=== PATIENT | male | born 1950 | race Caucasian/White ===

== ENCOUNTER 2017-09-16 18:26 | Emergency (ER) | payer SELFPAY ==
[~2017-09-16] VITALS: Ht 170.2 cm; Wt 82.0 kg
[2017-09-16 18:29] VITALS: BP 169/73; PULSE 73; RESP 20; TEMP 98.4; O2SAT 100
[2017-09-16] MEDS ORDERED: [UNRECOGNIZED DRUG - REMARK] (18:40)
[2017-09-16] MEDS ORDERED: GLIP5TAB8 PO (18:40)
[2017-09-16] MEDS ORDERED: VALS1TAB63 PO (18:40)
[2017-09-16] MEDS ORDERED: METF1000 PO (18:40)
[2017-09-16] MEDS ORDERED: CARV3.12 PO (18:40)
--- NOTE | 2017-09-17 23:07 | EKG ---
Date Performed: 09/16/2017 Time Performed: 18:42:23 PTAGE: 66 years EKG: Sinus rhythm SEPTAL MYOCARDIAL INFARCTION ABNORMAL ECG INTERPRETATION BASED ON A DEFAULT AGE OF 42 YEARS NO PREVIOUS TRACING DOCTOR: Brenda Fowler Interpretating Date/Time 09/17/2017 22:58:32
== END 2017-09-16 19:05 | disposition left against medical advice (07) ==
LOC: NEPE 18:26
DX: R06.02 Shortness of breath (principal); R94.31 Abnormal electrocardiogram [ECG] [EKG]; Z53.21 Procedure and treatment not carried out due to patient leaving prior to being seen by health care provider
CPT/HCPCS: 93005; 99281